=== PATIENT | male | born 1990 | race Caucasian/White ===

== ENCOUNTER 2017-04-27 13:23 | Emergency (ER) | payer OTHER | END 2017-04-27 17:24 | disposition home or self-care (01) | LOC: D.ER 13:23 | DX: M79.652 Pain in left thigh (principal); M79.651 Pain in right thigh; J20.9 Acute bronchitis, unspecified; J02.9 Acute pharyngitis, unspecified; F17.200 Nicotine dependence, unspecified, uncomplicated ==